=== PATIENT | male | born 1990 | race Caucasian/White ===

== ENCOUNTER 2021-04-13 16:40 | Emergency (ER) | payer OTHER ==
[2021-04-13] MEDS ORDERED: Ibuprofen 600 MG Tab PO ONE (17:37)
[2021-04-13] MEDS ORDERED: Sodium Chloride 0.9% 10 ML Syringe FLUSH PRN (17:41)
[2021-04-13] MEDS ORDERED: Iopamidol 755 Mg/ML 100 ML Bottle IVPUSH ONE (17:43)
[2021-04-13] MEDS ORDERED: Sodium Chloride 0.9% 100 ML IV SCH (17:45)
[2021-04-13] MEDS ORDERED: Ketorolac 30 MG/ML SDV IVPUSH ONE (18:12)
[2021-04-13] MEDS ORDERED: cefTRIAXone 2 GM in Sodium Chloride 0.9% 100 ML IV ONE (18:42)
== END 2021-04-13 20:00 | disposition home or self-care (01) ==
LOC: JD.ED 16:40
DX: J18.9 Pneumonia, unspecified organism (principal); J45.909 Unspecified asthma, uncomplicated; K21.9 Gastro-esophageal reflux disease without esophagitis; Z91.048 Other nonmedicinal substance allergy status; Z79.899 Other long term (current) drug therapy
CPT/HCPCS: 36415; 71045; 71275; 80053; 84484; 85025; 86140; 93005; 96365; 96375; 99285; A9270; J0696; J1885; Q9967; 93010